=== PATIENT | male | born 1965 | race Caucasian/White ===

== ENCOUNTER 2016-02-27 20:50 | Day surgery (SDC) | payer OTHER ==
[~2016-02-27] VITALS: Ht 172.7 cm; Wt 84.1 kg
[~2016-02-27 20:50] MED LIST: ADVAIR; ALBUTEROL; FLONASE; PREDNISONE20 MG PO; PROVENTIL,2.5 MG/3 M IH
[2016-02-27 23:36] LABS: HEMATOCRIT 38.8 % (38.0-50.0); MCH 25.5 PG (29.0-34.0); MCHC 34.3 G/DL (30.0-36.0); MCV 74.3 FL (86-99); MEAN PLAT.VOLUME 9.5 uM^3 (9.0-12.4); PLATELET COUNT 235 K/uL (156-360); RBC DIS.WIDTH-CV 14.9 % (11.8-14.6); RBC DIS.WIDTH-SD 39.8 % (39-53); RED BLOOD COUNT 5.22 M/uL (4.00-5.50); WHITE BLOOD COUNT 10.1 K/uL (4.1-10.2)
[2016-02-27 23:44] LABS: CHLORIDE 108 mEq/L (99-109); POTASSIUM 3.8 mEq/L (3.7-5.4); SODIUM 143 mEq/L (136-147)
[2016-02-27 23:46] LABS: GLUCOSE 103 mg/dL (70-99)
[2016-02-27 23:47] LABS: ANION GAP 13 MEQ/L (2-14)
[2016-02-27 23:50] LABS: GFR ESTIMATE (CALCULATED) > 59 mL/min/
[2016-02-27 23:51] LABS: UREA NITROGEN (BUN) 11 mg/dL (9-23)
[2016-02-28] MEDS ORDERED: PROAIR HFA8.5 GM IH (00:02)
[2016-02-28] MEDS ORDERED: ADVIL,NUPRIN,M200 MG PO (00:03)
[2016-02-28] MEDS ORDERED: DULERA 200 MCG/13 GM IH (00:03)
[2016-02-28] MEDS ORDERED: FLONASE16 G1 BOTH NARES (00:03)
[2016-02-28] MEDS ORDERED: MUSCLE RELAXER PO (00:04)
[2016-02-28 00:25] VITALS: BP 164/95
[2016-02-28] MEDS ORDERED: FLEXERIL5 MG PO (17:59)
== END 2016-02-28 | disposition home or self-care (01) ==
LOC: EXP 20:50 → EME 20:50 → SDC 02-28 00:26 → EXP 02-28 00:26
PROVIDERS: Emergency Medicine
DX: T18.128A Food in esophagus causing other injury, initial encounter (principal); Y92.9 Unspecified place or not applicable; K22.10 Ulcer of esophagus without bleeding; K25.9 Gastric ulcer, unspecified as acute or chronic, without hemorrhage or perforation; J45.909 Unspecified asthma, uncomplicated; Z79.51 Long term (current) use of inhaled steroids
CPT/HCPCS: 70360; 80048; 85027; 88305; 88342 TC; 99281; 99284; B4087; J0330; J1100; J2250; J2270; J2405; J3010; J7030